=== PATIENT | male | born 1950 | race African-American/Black ===

== ENCOUNTER 2025-03-25 22:14 | Emergency (ER) | payer MEDICARE, OTHER ==
[~2025-03-25] VITALS: Ht 170.2 cm; Wt 66.9 kg
[2025-03-25] MEDS ORDERED: ATIVAN0.5 MG PO (22:28)
[2025-03-25] MEDS ORDERED: IPRAT-ALBUT 0.5-3 ML INH (22:28)
[2025-03-25] MEDS ORDERED: MUCUS RELIEF E600 MG PO (22:29)
[2025-03-25] MEDS ORDERED: SEROQUEL25 MG PO (22:29)
[2025-03-25] MEDS ORDERED: DEXAMETHASONE2 MG PO (22:29)
[2025-03-25] MEDS ORDERED: ARTHRITIS PAIN650 MG PO (22:30)
[2025-03-25] MEDS ORDERED: NARCAN4 MG NS (22:30)
[2025-03-25] MEDS ORDERED: ELIQUIS5 MG PO (22:30)
[2025-03-25] MEDS ORDERED: CYCLOBENZAPRINE10 MG PO (22:30)
[2025-03-26 03:37] VITALS: BP 105/71
== END 2025-03-26 03:39 | disposition home or self-care (01) ==
LOC: ED 22:14
DX: Z43.0 Encounter for attention to tracheostomy (principal); I10 Essential (primary) hypertension; J44.9 Chronic obstructive pulmonary disease, unspecified; Z79.899 Other long term (current) drug therapy
CPT/HCPCS: 71045; 99283-25